=== PATIENT | female | born 1990 | race African-American/Black ===

== ENCOUNTER 2016-09-24 15:07 | Emergency (ER) | payer OTHER ==
[~2016-09-24 15:07] MED LIST: ALDACTAZIDE PO; ALLERGY RELIEF10 M1 PO; FLEXERIL10 MG PO; HYDROCHLOROTHIA25 MG PO; IBUPROFEN800 MG PO; K-DUR20 ME2 PO; PRENATAL MULTIV1 TA1 PO; PRENATAL1 TA1 PO; TAMIFLU75 M1 PO
[2016-09-24 16:33] LABS: URINE SOURCE CLEAN CATCH
[2016-09-24 16:37] LABS: URINE APPEARANCE CLEAR; URINE BILIRUBIN NEG (NEG); URINE BLOOD NEG (NEG); URINE COLOR YELLOW; URINE GLUCOSE NEG (NEG); URINE KETONE TRACE (NEG); URINE LEUKOCYTE ESTERASE 1+ (NEG); URINE NITRATE NEG (NEG); URINE PH 7.5 (5-8); URINE PROTEIN NEG (NEG); URINE SPECIFIC GRAVITY 1.029 (1.003-1.035)
[2016-09-24 16:38] LABS: CULTURE INDICATED? YES; URBCS1 AUWI 0-2 /[HPF] (0-2); URINE BACTERIA AUWI 1+ (NEGATIVE); URINE SQUAMOUS EPITHELIAL CELL FEW /[HPF]
== END 2016-09-24 17:05 | disposition home or self-care (01) ==
LOC: CFTX 15:07 → CED 15:07 → CFTX 16:50
DX: N39.0 Urinary tract infection, site not specified (principal); I10 Essential (primary) hypertension
CPT/HCPCS: 81003; 82947; 84703; 87086; 99283